=== PATIENT | female | born 1960 | race Caucasian/White ===

== ENCOUNTER 2023-09-14 11:48 | Inpatient (IN) | payer OTHER ==
[~2023-09-14] VITALS: Ht 167.6 cm; Wt 68.9 kg
[2023-09-14] VITALS (32 sets, daily range): BP systolic 150–160; BP diastolic 81–98; PULSE 53–106; RESP 18–19; TEMP 96.5–97.8
[2023-09-14 12:06] LABS: BASOPHILS % 0.6 % (0.0-2.0); DIFFERENTIAL COMMENT 0; EOSINOPHILS % 1.4 % (0.0-5.0); HEMATOCRIT. 36.2 % (36.0-48.0); HEMOGLOBIN. 10.6 g/dL (12.0-16.0); LYMPHOCYTES % 43.5 % (20.0-50.0); MEAN CORPUSCULAR HEMOGLOBIN 28.1 pg (28.0-32.0); MEAN CORPUSCULAR HGB CONC 29.2 g/dL (31.0-37.0); MEAN CORPUSCULAR VOLUME 96.3 fL (81.0-99.0); MEAN PLATELET VOLUME 9.1 fl (7.4-10.4); MONOCYTES % 8.1 % (2.0-8.0); NEUTROPHILS % 46.4 % (40.0-76.0); PLATELET 258 x1000/uL (130-400); RED BLOOD CELL COUNT 3.76 mill/uL (4.2-5.4); RED CELL DISTRIBUTION WIDTH 19.7 % (11.6-14.6)
[2023-09-14 12:33] LABS: ALANINE AMINOTRANSFERASE 52 IU/L (10-49); ASPARTATE AMINOTRANSFERASE 110 IU/L (<34); BILIRUBIN TOTAL 0.4 mg/dL (0.1-1.0); CALCIUM 8.7 mg/dL (8.7-10.4); CARBON DIOXIDE 25 mEq/L (21-32); CHLORIDE 96 mEq/L (98-107); CREATININE 2.4 mg/dL (0.6-1.0); GLUCOSE 173 mg/dL (70-105); PROTEIN TOTAL 6.6 g/dL (6.0-8.3); SODIUM 132 mEq/L (136-145); TROPONIN I HIGH SENSITIVITY 30 ng/L (3.0-34); UREA NITROGEN BLOOD 44 mg/dL (9-23)
[2023-09-14 12:44] LABS: CLARITY URINE CLEAR (CLEAR); COLOR URINE YELLOW (YELLOW); GLUCOSE URINE NEGATIVE (NEGATIVE); KETONES URINE TRACE (NEGATIVE); LEUKOCYTE ESTERASE URINE NEGATIVE (NEGATIVE); NITRITE URINE NEGATIVE (NEGATIVE); OCCULT BLOOD URINE TRACE (NEGATIVE); PH URINE 7.5 (4.5-8.0); PROTEIN URINE 4+ (NEGATIVE); SPECIFIC GRAVITY URINE 1.025 (1.005-1.030); UROBILINOGEN URINE 0.2 E.U./dL (0.2-1.0)
[2023-09-14 12:48] LABS: POTASSIUM 6.2 mEq/L (3.5-5.1)
[2023-09-14] MEDS ORDERED: FUROSEMIDE 100MG/10ML VIAL IV STA (13:21)
[2023-09-14 13:23] LABS: INR 1.3
[2023-09-14] MEDS ORDERED: INSULIN REGULAR (HUMULIN R) 300UNITS/3ML VIAL IV ONE (13:30)
[2023-09-14] MEDS ORDERED: CALCIUM CHLORIDE 1GM/10ML SYR IV ONE (13:30)
[2023-09-14] MEDS ORDERED: DEXTROSE 50% WATER 50ML SYRINGE IV ONE (13:30)
[2023-09-14] MEDS ORDERED: ALBUTEROL (0.083%) 2.5MG/3ML NEB HHN ONE (13:30)
[2023-09-14 13:42] LABS: SQUAMOUS EPITHELIAL CELL URINE FEW /lpf (RARE/1+)
[2023-09-14 13:43] LABS: BACTERIA URINE TRACE
[2023-09-14 13:44] LABS: WBC URINE 0-2 /hpf (0-2)
[2023-09-14] MEDS ORDERED: PROPOFOL 10MG/ML 100ML 100 ML IV SCH (13:45)
[2023-09-14] MEDS ORDERED: FUROSEMIDE 40MG/4ML VIAL IV NR (14:00)
[2023-09-14 15:49] LABS: LACTIC ACID 6.7 mmol/L (0.4-2.0)
[2023-09-14] MEDS: DEXT 5%/0.45% NACL 1000ML 1,000 ML IV SCH (17:00)
[2023-09-14] MEDS ORDERED: ENOXAPARIN 30MG/0.3ML SYR SUBCUT SCH (17:00)
[2023-09-14] MEDS ORDERED: SODIUM POLYSTYRENE SULFONATE 15 G/60 ML BOT PO NR (18:45)
[2023-09-14] MEDS: HYDRALAZINE HCL 10MG TABLET PO PRN (20:44)
[2023-09-14] MEDS ORDERED: PROPOFOL 10MG/ML 100ML 100 ML IV PRN (21:00)
[2023-09-14] MEDS: PROPOFOL 10MG/ML 100ML 100 ML IV PRN (21:17)
[2023-09-14] MEDS ORDERED: ACETAMINOPHEN 650MG/20.3ML UDC GT PRN (21:45)
[2023-09-14] MEDS ORDERED: IPRATROPIUM/ALBUTEROL 0.5-3(2.5)MG/3ML NEB NEB PRN (21:45)
[2023-09-14] MEDS ORDERED: ONDANSETRON HCL 4MG/2ML INJ IV PRN (21:45)
[2023-09-14] MEDS ORDERED: ENOXAPARIN 40MG/0.4ML SYR SUBCUT SCH (21:45)
[2023-09-14] MEDS ORDERED: DEXTROSE 50% WATER 50ML SYRINGE IV PRN (21:45)
[2023-09-14 22:25] LABS: TROPONIN I HIGH SENSITIVITY 1051 ng/L (3.0-34)
[2023-09-14 22:35] LABS: BG BASE EXCESS 4.9 mmol/L (-2.0-2.0); BG CARBOXYHEMOGLOBIN 0.1 % (0.5-1.5); BG DEOXYHEMOGLOBIN 0.5 % (0.0-5.0); BG FRACTION INSPIRED OXYGEN 80; BG METHEMOGLOBIN 0.2 % (0.0-1.5); BG OXYGEN SATURATION 99.5 % (92.0-98.5); BG OXYHEMOGLOBIN 99.2 % (94.0-97.0); BG PCO2 27.9 mmHg (35.0-45.0); BG PH 7.588 (7.350-7.450); BG PO2 231.1 mmHg (75.0-100.0); BG SAMPLE SITE LEFT BRACHIAL; BG TOTAL HEMOGLOBIN 11.9 g/dL (12.0-18.0); BG VENT MODE VENT - AC
[2023-09-15] VITALS (88 sets, daily range): BP systolic 133–183; BP diastolic 70–113; PULSE 56–78; RESP 12–28; TEMP 97.6–98.6; O2SAT 98
[2023-09-15] MEDS: PROPOFOL 10MG/ML 100ML 100 ML IV PRN ×2 (03:09→07:44)
[2023-09-15 05:32] LABS: HEMATOCRIT. 35.8 % (36.0-48.0); HEMOGLOBIN. 10.9 g/dL (12.0-16.0); MEAN CORPUSCULAR HEMOGLOBIN 27.1 pg (28.0-32.0); MEAN CORPUSCULAR HGB CONC 30.5 g/dL (31.0-37.0); MEAN CORPUSCULAR VOLUME 88.9 fL (81.0-99.0); MEAN PLATELET VOLUME 8.6 fl (7.4-10.4); PLATELET 352 x1000/uL (130-400); RED BLOOD CELL COUNT 4.03 mill/uL (4.2-5.4); RED CELL DISTRIBUTION WIDTH 17.9 % (11.6-14.6); WHITE BLOOD COUNT 12.1 x1000/uL (4.5-11.0)
[2023-09-15 06:05] LABS: CALCIUM 8.8 mg/dL (8.7-10.4); CARBON DIOXIDE 29 mEq/L (21-32); CHLORIDE 96 mEq/L (98-107); CREATININE 2.4 mg/dL (0.6-1.0); GLUCOSE 284 mg/dL (70-105); SODIUM 136 mEq/L (136-145); TRIGLYCERIDE 122 mg/dL (0-150); UREA NITROGEN BLOOD 51 mg/dL (9-23)
[2023-09-15 06:06] LABS: DIFFERENTIAL COMMENT 1
[2023-09-15 06:17] LABS: POTASSIUM 3.3 mEq/L (3.5-5.1)
[2023-09-15] MEDS ORDERED: POTASSIUM CHLORIDE 20MEQ/PACKET PO NR (08:15)
[2023-09-15] MEDS: BLOOD SUGAR DIAGNOSTIC STRIP TEST SCH ×4 (08:25→21:00)
[2023-09-15] MEDS: INSULIN LISPRO 100 UNITS/ML SUBCUT SCH ×4 (08:35→22:05)
[2023-09-15 08:46] LABS: BG BASE EXCESS 2.4 mmol/L (-2.0-2.0); BG CARBOXYHEMOGLOBIN 0.3 % (0.5-1.5); BG DEOXYHEMOGLOBIN 1.1 % (0.0-5.0); BG FRACTION INSPIRED OXYGEN 40; BG HCO3 ACT 24.2 mmol/L (22.0-26.0); BG METHEMOGLOBIN 0.3 % (0.0-1.5); BG OXYGEN SATURATION 98.9 % (92.0-98.5); BG OXYHEMOGLOBIN 98.3 % (94.0-97.0); BG PCO2 28.9 mmHg (35.0-45.0); BG PH 7.541 (7.350-7.450); BG PO2 148.3 mmHg (75.0-100.0); BG SAMPLE SITE RIGHT RADIAL; BG TOTAL HEMOGLOBIN 11.8 g/dL (12.0-18.0); BG VENT MODE VENT - AC
[2023-09-15 09:38] LABS: CREATINE KINASE 89 IU/L (34-145)
[2023-09-15] MEDS: PANTOPRAZOLE SODIUM 40 MG/VIAL IV SCH (10:02)
[2023-09-15] MEDS: HYDRALAZINE HCL 10MG TABLET PO PRN (10:02)
[2023-09-15] MEDS ORDERED: FUROSEMIDE 40MG/4ML VIAL IVP NR ×2 (11:00→19:30)
[2023-09-15 11:51] LABS: PLATELET ESTIMATE NORMAL
[2023-09-15 11:54] LABS: ANISOCYTOSIS 1+
[2023-09-15] MEDS: DEXT 5%/0.45% NACL 1000ML 1,000 ML IV SCH (12:30)
[2023-09-15] MEDS: ENOXAPARIN 60MG/0.6ML SYR SUBCUT SCH (12:32)
[2023-09-15 14:41] LABS: *AMPHETAMINES SCREEN URINE NEGATIVE (NEGATIVE); *BARBITURATES SCREEN URINE NEGATIVE (NEGATIVE); *BENZODIAZEPINES SCREEN URINE NEGATIVE (NEGATIVE); *COCAINE SCREEN URINE NEGATIVE (NEGATIVE); CANNABINOID URINE SCREEN NEGATIVE (NEGATIVE); ECSTASY MDMA SCREEN URINE NEGATIVE (NEGATIVE); METHADONE URINE SCREEN Neg (NEGATIVE); OPIATES URINE SCREEN NEGATIVE (NEGATIVE); PHENCYCLIDINE URINE SCREEN NEGATIVE (NEGATIVE)
[2023-09-15 14:44] LABS: CREATININE URINE RANDOM 53.4 mg/dL
[2023-09-15] MEDS: IPRATROPIUM/ALBUTEROL 0.5-3(2.5)MG/3ML NEB HHN SCH ×2 (16:14→21:04)
[2023-09-15] MEDS: ATORVASTATIN CALCIUM 40MG TABLET PO SCH (22:03)
[2023-09-16] VITALS (33 sets, daily range): BP systolic 126–150; BP diastolic 49–117; PULSE 69–91; RESP 10–32; TEMP 98.3–98.6
[2023-09-16] MEDS: IPRATROPIUM/ALBUTEROL 0.5-3(2.5)MG/3ML NEB HHN SCH ×3 (02:35→21:00)
[2023-09-16 06:07] LABS: CALCIUM 8.4 mg/dL (8.7-10.4); CREATININE 2.5 mg/dL (0.6-1.0); POTASSIUM 3.4 mEq/L (3.5-5.1)
[2023-09-16] MEDS: BLOOD SUGAR DIAGNOSTIC STRIP TEST SCH ×3 (07:58→17:45)
[2023-09-16] MEDS: INSULIN LISPRO 100 UNITS/ML SUBCUT SCH ×3 (07:59→17:52)
[2023-09-16 08:42] LABS: BG BASE EXCESS 3.4 mmol/L (-2.0-2.0); BG CARBOXYHEMOGLOBIN 0.3 % (0.5-1.5); BG DEOXYHEMOGLOBIN 3.1 % (0.0-5.0); BG FRACTION INSPIRED OXYGEN 30; BG HCO3 ACT 26.6 mmol/L (22.0-26.0); BG METHEMOGLOBIN 0.3 % (0.0-1.5); BG OXYGEN SATURATION 96.9 % (92.0-98.5); BG OXYHEMOGLOBIN 96.3 % (94.0-97.0); BG PCO2 35.6 mmHg (35.0-45.0); BG PH 7.491 (7.350-7.450); BG PO2 86.8 mmHg (75.0-100.0); BG SAMPLE SITE LEFT BRACHIAL; BG TOTAL HEMOGLOBIN 11.9 g/dL (12.0-18.0); BG VENT MODE VENT - AC
[2023-09-16] MEDS: DEXT 5%/0.45% NACL 1000ML 1,000 ML IV SCH ×2 (09:00→13:27)
[2023-09-16] MEDS: CARVEDILOL 6.25 MG TABLET PO SCH (09:13)
[2023-09-16] MEDS: PANTOPRAZOLE SODIUM 40 MG/VIAL IV SCH (09:13)
[2023-09-16] MEDS: ASPIRIN 81MG TABLET PO SCH (09:13)
[2023-09-16] MEDS: POTASSIUM CHLORIDE 20MEQ/PACKET PO SCH ×2 (09:14→17:51)
[2023-09-16] MEDS: FUROSEMIDE 100MG/10ML VIAL IVP SCH ×2 (09:14→17:51)
[2023-09-16] MEDS: ENOXAPARIN 60MG/0.6ML SYR SUBCUT SCH (12:53)
[2023-09-16] MEDS: ATORVASTATIN CALCIUM 40MG TABLET PO SCH (21:14)
[2023-09-17] VITALS (34 sets, daily range): BP systolic 109–163; BP diastolic 66–98; PULSE 63–95; RESP 10–24; TEMP 96–98.3
[2023-09-17] MEDS: BLOOD SUGAR DIAGNOSTIC STRIP TEST SCH ×4 (00:02→17:31)
[2023-09-17] MEDS: INSULIN LISPRO 100 UNITS/ML SUBCUT SCH ×4 (00:04→17:40)
[2023-09-17] MEDS: IPRATROPIUM/ALBUTEROL 0.5-3(2.5)MG/3ML NEB HHN SCH ×4 (00:37→19:58)
[2023-09-17] MEDS: DEXT 5%/0.45% NACL 1000ML 1,000 ML IV SCH (03:27)
[2023-09-17] MEDS: HYDRALAZINE HCL 10MG TABLET PO PRN (06:02)
[2023-09-17 06:03] LABS: BASOPHILS % 0.3 % (0.0-2.0); EOSINOPHILS % 0.4 % (0.0-5.0); HEMATOCRIT. 36.2 % (36.0-48.0); HEMOGLOBIN. 11.3 g/dL (12.0-16.0); LYMPHOCYTES % 7.7 % (20.0-50.0); MEAN CORPUSCULAR HEMOGLOBIN 27.6 pg (28.0-32.0); MEAN CORPUSCULAR HGB CONC 31.3 g/dL (31.0-37.0); MEAN CORPUSCULAR VOLUME 88.1 fL (81.0-99.0); MEAN PLATELET VOLUME 9.1 fl (7.4-10.4); MONOCYTES % 7.3 % (2.0-8.0); NEUTROPHILS % 84.3 % (40.0-76.0); PLATELET 353 x1000/uL (130-400); RED BLOOD CELL COUNT 4.11 mill/uL (4.2-5.4); RED CELL DISTRIBUTION WIDTH 18.4 % (11.6-14.6); WHITE BLOOD COUNT 11.7 x1000/uL (4.5-11.0)
[2023-09-17 06:23] LABS: CALCIUM 8.4 mg/dL (8.7-10.4); CREATININE 2.6 mg/dL (0.6-1.0)
[2023-09-17] MEDS: FUROSEMIDE 100MG/10ML VIAL IVP SCH ×2 (08:42→17:39)
[2023-09-17] MEDS: ASPIRIN 81MG TABLET PO SCH (08:42)
[2023-09-17] MEDS: POTASSIUM CHLORIDE 20MEQ/PACKET PO SCH (08:42)
[2023-09-17] MEDS: PANTOPRAZOLE SODIUM 40 MG/VIAL IV SCH (08:44)
[2023-09-17] MEDS: CARVEDILOL 6.25 MG TABLET PO SCH (08:44)
[2023-09-17 10:24] LABS: BG BASE EXCESS -5.8 mmol/L (-2.0-2.0); BG CARBOXYHEMOGLOBIN 0.3 % (0.5-1.5); BG FRACTION INSPIRED OXYGEN 30; BG HCO3 ACT 17.2 mmol/L (22.0-26.0); BG METHEMOGLOBIN 0.3 % (0.0-1.5); BG OXYHEMOGLOBIN 91.4 % (94.0-97.0); BG PCO2 24.9 mmHg (35.0-45.0); BG PH 7.457 (7.350-7.450); BG PO2 60.5 mmHg (75.0-100.0); BG SAMPLE SITE RIGHT RADIAL; BG TOTAL HEMOGLOBIN 8.1 g/dL (12.0-18.0); BG VENT MODE VENT - AC/VC
[2023-09-17] MEDS: ENOXAPARIN 60MG/0.6ML SYR SUBCUT SCH (12:48)
[2023-09-17] MEDS: ATORVASTATIN CALCIUM 40MG TABLET PO SCH (22:26)
[2023-09-18] VITALS (49 sets, daily range): BP systolic 119–149; BP diastolic 61–77; PULSE 61–69; RESP 12–27; TEMP 97.2–98
[2023-09-18] MEDS: BLOOD SUGAR DIAGNOSTIC STRIP TEST SCH ×4 (00:22→17:57)
[2023-09-18] MEDS: INSULIN LISPRO 100 UNITS/ML SUBCUT SCH ×4 (00:28→17:56)
[2023-09-18] MEDS: DEXT 5%/0.45% NACL 1000ML 1,000 ML IV SCH (01:46)
[2023-09-18] MEDS: IPRATROPIUM/ALBUTEROL 0.5-3(2.5)MG/3ML NEB HHN SCH ×4 (02:05→20:33)
[2023-09-18 07:58] LABS: HEMOGLOBIN. 10.7 g/dL (12.0-16.0); MEAN CORPUSCULAR HEMOGLOBIN 28.2 pg (28.0-32.0); MEAN CORPUSCULAR HGB CONC 32.5 g/dL (31.0-37.0); MEAN CORPUSCULAR VOLUME 86.6 fL (81.0-99.0); PLATELET 296 x1000/uL (130-400); RED BLOOD CELL COUNT 3.81 mill/uL (4.2-5.4); RED CELL DISTRIBUTION WIDTH 18.3 % (11.6-14.6); WHITE BLOOD COUNT 9.9 x1000/uL (4.5-11.0)
[2023-09-18 08:17] LABS: DIFFERENTIAL COMMENT 1
[2023-09-18 08:21] LABS: CALCIUM 8.1 mg/dL (8.7-10.4); CARBON DIOXIDE 25 mEq/L (21-32); CHLORIDE 101 mEq/L (98-107); CREATININE 2.5 mg/dL (0.6-1.0); GLUCOSE 193 mg/dL (70-105); PHOSPHORUS 4.2 mg/dL (2.5-4.9); POTASSIUM 3.5 mEq/L (3.5-5.1); SODIUM 137 mEq/L (136-145); UREA NITROGEN BLOOD 56 mg/dL (9-23)
[2023-09-18] MEDS: PANTOPRAZOLE SODIUM 40 MG/VIAL IV SCH (09:25)
[2023-09-18] MEDS: POTASSIUM CHLORIDE 20MEQ/PACKET PO SCH (09:25)
[2023-09-18] MEDS: CARVEDILOL 6.25 MG TABLET PO SCH (09:25)
[2023-09-18] MEDS: ASPIRIN 81MG TABLET PO SCH (09:25)
[2023-09-18] MEDS: FUROSEMIDE 100MG/10ML VIAL IVP SCH ×2 (09:25→17:56)
[2023-09-18] MEDS ORDERED: POTASSIUM CHLORIDE 20MEQ/PACKET PO NR (11:45)
[2023-09-18 12:14] LABS: BG BASE EXCESS 2.5 mmol/L (-2.0-2.0); BG CARBOXYHEMOGLOBIN 0.3 % (0.5-1.5); BG DEOXYHEMOGLOBIN 1.9 % (0.0-5.0); BG HCO3 ACT 25.1 mmol/L (22.0-26.0); BG METHEMOGLOBIN 0.1 % (0.0-1.5); BG OXYGEN SATURATION 98.1 % (92.0-98.5); BG OXYHEMOGLOBIN 97.7 % (94.0-97.0); BG PCO2 32.2 mmHg (35.0-45.0); BG PH 7.509 (7.350-7.450); BG PO2 101.9 mmHg (75.0-100.0); BG SAMPLE SITE RIGHT BRACHIAL; BG TOTAL HEMOGLOBIN 12.2 g/dL (12.0-18.0); BG VENT MODE VENT - AC
[2023-09-18 12:46] LABS: ANISOCYTOSIS 1+; PLATELET ESTIMATE NORMAL
[2023-09-18] MEDS: ENOXAPARIN 60MG/0.6ML SYR SUBCUT SCH (13:21)
[2023-09-18] MEDS: ATORVASTATIN CALCIUM 40MG TABLET PO SCH (21:39)
[2023-09-19] VITALS (58 sets, daily range): BP systolic 116–162; BP diastolic 59–82; PULSE 63–89; RESP 5–26; TEMP 97–97.7
[2023-09-19] MEDS: INSULIN LISPRO 100 UNITS/ML SUBCUT SCH ×4 (00:24→17:39)
[2023-09-19] MEDS: IPRATROPIUM/ALBUTEROL 0.5-3(2.5)MG/3ML NEB HHN SCH ×4 (02:34→20:45)
[2023-09-19] MEDS: BLOOD SUGAR DIAGNOSTIC STRIP TEST SCH ×4 (06:00→17:39)
[2023-09-19 07:03] LABS: CALCIUM 8.3 mg/dL (8.7-10.4); CREATININE 2.4 mg/dL (0.6-1.0); POTASSIUM 3.9 mEq/L (3.5-5.1)
[2023-09-19 07:51] LABS: HEPATITIS B SURFACE ANTIGEN NEGATIVE (Negative); HEPATITIS C AB NON REACTIVE (Neg) (Negative)
[2023-09-19] MEDS: FUROSEMIDE 100MG/10ML VIAL IVP SCH ×2 (08:59→17:37)
[2023-09-19] MEDS: PANTOPRAZOLE SODIUM 40 MG/VIAL IV SCH (09:00)
[2023-09-19] MEDS: CARVEDILOL 6.25 MG TABLET PO SCH (09:00)
[2023-09-19] MEDS: ASPIRIN 81MG TABLET PO SCH (09:00)
[2023-09-19] MEDS: ENOXAPARIN 60MG/0.6ML SYR SUBCUT SCH (12:00)
[2023-09-19 12:08] LABS: BG BASE EXCESS 4.2 mmol/L (-2.0-2.0); BG CARBOXYHEMOGLOBIN 0.5 % (0.5-1.5); BG DEOXYHEMOGLOBIN 2.6 % (0.0-5.0); BG FRACTION INSPIRED OXYGEN 35; BG HCO3 ACT 27.8 mmol/L (22.0-26.0); BG METHEMOGLOBIN 0.2 % (0.0-1.5); BG OXYGEN SATURATION 97.4 % (92.0-98.5); BG OXYHEMOGLOBIN 96.7 % (94.0-97.0); BG PCO2 38.2 mmHg (35.0-45.0); BG PO2 91.6 mmHg (75.0-100.0); BG SAMPLE SITE LEFT BRACHIAL; BG TOTAL HEMOGLOBIN 12.1 g/dL (12.0-18.0); BG TOTAL RESPIRATORY RATE 15 b/min; BG VENT MODE VENT - AC
[2023-09-19] MEDS: ATORVASTATIN CALCIUM 40MG TABLET PO SCH (21:39)
[2023-09-20] VITALS (39 sets, daily range): BP systolic 116–156; BP diastolic 58–79; PULSE 67–84; RESP 0–31; TEMP 97.5–98.3
[2023-09-20] MEDS: INSULIN LISPRO 100 UNITS/ML SUBCUT SCH ×5 (00:20→23:58)
[2023-09-20] MEDS: IPRATROPIUM/ALBUTEROL 0.5-3(2.5)MG/3ML NEB HHN SCH ×2 (02:35→08:52)
[2023-09-20 05:26] LABS: BASOPHILS % 0.4 % (0.0-2.0); EOSINOPHILS % 1.5 % (0.0-5.0); HEMATOCRIT. 36.8 % (36.0-48.0); HEMOGLOBIN. 11.9 g/dL (12.0-16.0); LYMPHOCYTES % 9.5 % (20.0-50.0); MEAN CORPUSCULAR HEMOGLOBIN 28.2 pg (28.0-32.0); MEAN CORPUSCULAR HGB CONC 32.4 g/dL (31.0-37.0); MEAN CORPUSCULAR VOLUME 87.1 fL (81.0-99.0); MEAN PLATELET VOLUME 9.1 fl (7.4-10.4); MONOCYTES % 15.9 % (2.0-8.0); NEUTROPHILS % 72.7 % (40.0-76.0); PLATELET 285 x1000/uL (130-400); RED BLOOD CELL COUNT 4.22 mill/uL (4.2-5.4); RED CELL DISTRIBUTION WIDTH 18.5 % (11.6-14.6); WHITE BLOOD COUNT 8.2 x1000/uL (4.5-11.0)
[2023-09-20 05:38] LABS: CALCIUM 8.3 mg/dL (8.7-10.4); CREATININE 2.4 mg/dL (0.6-1.0); POTASSIUM 4.2 mEq/L (3.5-5.1)
[2023-09-20 05:41] LABS: DIFFERENTIAL COMMENT 1
[2023-09-20] MEDS: BLOOD SUGAR DIAGNOSTIC STRIP TEST SCH ×5 (06:00→23:28)
[2023-09-20] MEDS: ASPIRIN 81MG TABLET PO SCH (09:40)
[2023-09-20] MEDS: FUROSEMIDE 100MG/10ML VIAL IVP SCH (09:41)
[2023-09-20] MEDS: PANTOPRAZOLE SODIUM 40 MG/VIAL IV SCH (09:41)
[2023-09-20] MEDS: CARVEDILOL 6.25 MG TABLET PO SCH (09:41)
[2023-09-20 10:06] LABS: COMPLEMENT C3 100 mg/dL (82-167); COMPLEMENT C4 27 mg/dL (12-38)
[2023-09-20] MEDS: ENOXAPARIN 60MG/0.6ML SYR SUBCUT SCH (12:40)
[2023-09-20] MEDS: FUROSEMIDE 40MG/4 ML UDC PO SCH (20:18)
[2023-09-20] MEDS: ATORVASTATIN CALCIUM 40MG TABLET PO SCH (20:19)
[2023-09-21] VITALS (34 sets, daily range): BP systolic 115–149; BP diastolic 57–76; PULSE 62–82; RESP 12–24; TEMP 97.1–98.5
[2023-09-21] MEDS: BLOOD SUGAR DIAGNOSTIC STRIP TEST SCH ×3 (05:55→18:00)
[2023-09-21] MEDS: INSULIN LISPRO 100 UNITS/ML SUBCUT SCH ×3 (06:02→20:10)
[2023-09-21 06:11] LABS: A/G RATIO 0.6 (0.7-1.7); ALPHA-1-GLOBULIN 0.4 g/dL (0.0-0.4); ALPHA-2-GLOBULIN 0.8 g/dL (0.4-1.0); GAMMA GLOBULINS 1.1 g/dL (0.4-1.8); GLOBULIN TOTAL 3.4 g/dL (2.2-3.9); M-SPIKE Not Observed g/dL (Not Observed); TOTAL PROTEIN SERUM 5.4 g/dL (6.0-8.5)
[2023-09-21] MEDS: FUROSEMIDE 40MG/4 ML UDC PO SCH ×2 (09:48→21:46)
[2023-09-21] MEDS: PANTOPRAZOLE SODIUM 40 MG/VIAL IV SCH (09:48)
[2023-09-21] MEDS: ASPIRIN 81MG TABLET PO SCH (09:49)
[2023-09-21] MEDS: CARVEDILOL 6.25 MG TABLET PO SCH (09:49)
[2023-09-21] MEDS: ENOXAPARIN 60MG/0.6ML SYR SUBCUT SCH (13:49)
[2023-09-21] MEDS: ATORVASTATIN CALCIUM 40MG TABLET PO SCH (21:46)
[2023-09-22] VITALS (31 sets, daily range): BP systolic 117–149; BP diastolic 56–72; PULSE 68–88; RESP 9–19; TEMP 97.9–98.7
[2023-09-22] MEDS: INSULIN LISPRO 100 UNITS/ML SUBCUT SCH ×4 (00:16→19:05)
[2023-09-22] MEDS: BLOOD SUGAR DIAGNOSTIC STRIP TEST SCH ×4 (05:33→18:00)
[2023-09-22 08:58] LABS: HEMATOCRIT 34.1 % (36.0-48.0); HEMOGLOBIN 10.6 g/dL (12.0-16.0); MEAN CORPUSCULAR HEMOGLOBIN 27.3 pg (28.0-32.0); MEAN CORPUSCULAR HGB CONC 31.1 g/dL (31.0-37.0); MEAN CORPUSCULAR VOLUME 87.8 fL (81.0-99.0); PLATELET 260 x1000/uL (130-400); RED BLOOD CELL COUNT 3.89 mill/uL (4.2-5.4); RED CELL DISTRIBUTION WIDTH 18.4 % (11.6-14.6); WHITE BLOOD COUNT 11.1 x1000/uL (4.5-11.0)
[2023-09-22] MEDS: PANTOPRAZOLE SODIUM 40 MG/VIAL IV SCH (09:01)
[2023-09-22] MEDS: FUROSEMIDE 40MG/4 ML UDC PO SCH ×2 (09:01→21:10)
[2023-09-22] MEDS: CARVEDILOL 6.25 MG TABLET PO SCH (09:01)
[2023-09-22] MEDS: ASPIRIN 81MG TABLET PO SCH (09:02)
[2023-09-22 09:06] LABS: CREATININE 2.4 mg/dL (0.6-1.0); POTASSIUM 3.7 mEq/L (3.5-5.1)
[2023-09-22] MEDS: ENOXAPARIN 60MG/0.6ML SYR SUBCUT SCH (12:53)
[2023-09-22] MEDS: ATORVASTATIN CALCIUM 40MG TABLET PO SCH (21:09)
[2023-09-23] VITALS (30 sets, daily range): BP systolic 117–147; BP diastolic 54–73; PULSE 75–98; RESP 13–32; TEMP 97.9–99.3
[2023-09-23] MEDS: BLOOD SUGAR DIAGNOSTIC STRIP TEST SCH ×4 (00:19→17:27)
[2023-09-23] MEDS: INSULIN LISPRO 100 UNITS/ML SUBCUT SCH ×4 (00:19→17:52)
[2023-09-23 07:03] LABS: HEMATOCRIT. 33.8 % (36.0-48.0); HEMOGLOBIN. 10.6 g/dL (12.0-16.0); MEAN CORPUSCULAR HEMOGLOBIN 27.4 pg (28.0-32.0); MEAN CORPUSCULAR HGB CONC 31.3 g/dL (31.0-37.0); MEAN CORPUSCULAR VOLUME 87.3 fL (81.0-99.0); MEAN PLATELET VOLUME 9.5 fl (7.4-10.4); PLATELET 286 x1000/uL (130-400); RED BLOOD CELL COUNT 3.87 mill/uL (4.2-5.4); RED CELL DISTRIBUTION WIDTH 18.3 % (11.6-14.6); WHITE BLOOD COUNT 11.9 x1000/uL (4.5-11.0)
[2023-09-23 07:08] LABS: DIFFERENTIAL COMMENT 1
[2023-09-23 08:05] LABS: CALCIUM 8.4 mg/dL (8.7-10.4); CREATININE 2.7 mg/dL (0.6-1.0); POTASSIUM 3.5 mEq/L (3.5-5.1)
[2023-09-23] MEDS: ASPIRIN 81MG TABLET PO SCH (08:45)
[2023-09-23] MEDS ORDERED: POTASSIUM CHLORIDE INJ 40 MEQ in DEXT 5% WATER 250 ML IV ONE (08:45)
[2023-09-23] MEDS: FUROSEMIDE 40MG/4 ML UDC PO SCH ×2 (08:45→21:48)
[2023-09-23] MEDS: KCL 20MEQ/100ML X 2 FOR TOTAL KCL 40MEQ/200ML IV SCH ×2 (08:45→11:08)
[2023-09-23] MEDS: CARVEDILOL 6.25 MG TABLET PO SCH (08:45)
[2023-09-23] MEDS: PANTOPRAZOLE SODIUM 40 MG/VIAL IV SCH (08:45)
[2023-09-23] MEDS: IPRATROPIUM/ALBUTEROL 0.5-3(2.5)MG/3ML NEB HHN SCH ×3 (11:31→21:07)
[2023-09-23] MEDS: ENOXAPARIN 60MG/0.6ML SYR SUBCUT SCH (12:14)
[2023-09-23 13:42] LABS: BG BASE EXCESS 0.8 mmol/L (-2.0-2.0); BG CARBOXYHEMOGLOBIN 0.1 % (0.5-1.5); BG DEOXYHEMOGLOBIN 1.9 % (0.0-5.0); BG FRACTION INSPIRED OXYGEN 35; BG HCO3 ACT 23.9 mmol/L (22.0-26.0); BG METHEMOGLOBIN 0.3 % (0.0-1.5); BG OXYGEN SATURATION 98.1 % (92.0-98.5); BG OXYHEMOGLOBIN 97.7 % (94.0-97.0); BG PCO2 33.2 mmHg (35.0-45.0); BG PH 7.476 (7.350-7.450); BG SAMPLE SITE RIGHT RADIAL; BG TOTAL HEMOGLOBIN 11.5 g/dL (12.0-18.0); BG VENT MODE VENT - CPAP/PS
[2023-09-23 16:26] LABS: ANISOCYTOSIS 2+; HYPOCHROMASIA 1+; PLATELET ESTIMATE NORMAL
[2023-09-23] MEDS: ATORVASTATIN CALCIUM 40MG TABLET PO SCH (21:49)
[2023-09-24] VITALS (26 sets, daily range): BP systolic 108–150; BP diastolic 49–78; PULSE 79–111; RESP 10–26; TEMP 97.9–102.3
[2023-09-24] MEDS: INSULIN LISPRO 100 UNITS/ML SUBCUT SCH ×5 (00:55→23:48)
[2023-09-24] MEDS: BLOOD SUGAR DIAGNOSTIC STRIP TEST SCH ×5 (00:56→23:31)
[2023-09-24] MEDS: IPRATROPIUM/ALBUTEROL 0.5-3(2.5)MG/3ML NEB HHN SCH ×4 (01:43→21:33)
[2023-09-24 05:57] LABS: HEMATOCRIT. 33.1 % (36.0-48.0); HEMOGLOBIN. 10.6 g/dL (12.0-16.0); MEAN CORPUSCULAR HEMOGLOBIN 27.5 pg (28.0-32.0); MEAN CORPUSCULAR HGB CONC 32.2 g/dL (31.0-37.0); MEAN CORPUSCULAR VOLUME 85.5 fL (81.0-99.0); MEAN PLATELET VOLUME 9.2 fl (7.4-10.4); PLATELET 285 x1000/uL (130-400); RED BLOOD CELL COUNT 3.87 mill/uL (4.2-5.4); RED CELL DISTRIBUTION WIDTH 18.2 % (11.6-14.6); WHITE BLOOD COUNT 16.9 x1000/uL (4.5-11.0)
[2023-09-24 06:02] LABS: CALCIUM 8.4 mg/dL (8.7-10.4); CREATININE 2.7 mg/dL (0.6-1.0); POTASSIUM 3.8 mEq/L (3.5-5.1)
[2023-09-24 06:21] LABS: DIFFERENTIAL COMMENT 1
[2023-09-24] MEDS: PANTOPRAZOLE SODIUM 40 MG/VIAL IV SCH (09:13)
[2023-09-24] MEDS: CARVEDILOL 6.25 MG TABLET PO SCH (09:14)
[2023-09-24] MEDS: FUROSEMIDE 40MG/4 ML UDC PO SCH (09:14)
[2023-09-24] MEDS: ASPIRIN 81MG TABLET PO SCH (09:15)
[2023-09-24] MEDS: ENOXAPARIN 60MG/0.6ML SYR SUBCUT SCH (13:06)
[2023-09-24] MEDS: HYDRALAZINE HCL 10MG TABLET PO PRN (18:07)
[2023-09-24] MEDS: INSULIN GLARGINE 100 UNITS/ML SUBCUT SCH (18:09)
[2023-09-24] MEDS: ACETAMINOPHEN 650MG/20.3ML UDC GT PRN (20:03)
[2023-09-24] MEDS: ATORVASTATIN CALCIUM 40MG TABLET PO SCH (20:03)
[2023-09-24] MEDS: FUROSEMIDE 40MG TABLET PO SCH (20:03)
[2023-09-25] VITALS (31 sets, daily range): BP systolic 115–140; BP diastolic 53–67; PULSE 78–85; RESP 0–28; TEMP 99.3–100.2
[2023-09-25] MEDS: IPRATROPIUM/ALBUTEROL 0.5-3(2.5)MG/3ML NEB HHN SCH ×4 (00:51→19:54)
[2023-09-25 03:04] LABS: ANISOCYTOSIS 1+; PLATELET ESTIMATE NORMAL
[2023-09-25 04:21] LABS: ANA IFA Positive (.)
[2023-09-25] MEDS: BLOOD SUGAR DIAGNOSTIC STRIP TEST SCH ×4 (06:00→23:32)
[2023-09-25] MEDS: INSULIN LISPRO 100 UNITS/ML SUBCUT SCH ×4 (06:50→23:32)
[2023-09-25 08:02] LABS: CALCIUM 8.7 mg/dL (8.7-10.4); CARBON DIOXIDE 25 mEq/L (21-32); CHLORIDE 110 mEq/L (98-107); CREATININE 2.9 mg/dL (0.6-1.0); GLUCOSE 251 mg/dL (70-105); PHOSPHORUS 3.6 mg/dL (2.5-4.9); POTASSIUM 3.7 mEq/L (3.5-5.1); PREALBUMIN 5.7 mg/dl (10.0-40.0); SODIUM 147 mEq/L (136-145)
[2023-09-25 09:17] LABS: UREA NITROGEN BLOOD 103 mg/dL (9-23)
[2023-09-25] MEDS: PANTOPRAZOLE SODIUM 40 MG/VIAL IV SCH (09:31)
[2023-09-25] MEDS: CARVEDILOL 6.25 MG TABLET PO SCH (09:31)
[2023-09-25] MEDS: FUROSEMIDE 40MG TABLET PO SCH ×2 (09:31→21:34)
[2023-09-25] MEDS: ASPIRIN 81MG TABLET PO SCH (09:31)
[2023-09-25] MEDS: INSULIN GLARGINE 100 UNITS/ML SUBCUT SCH (09:32)
[2023-09-25 10:22] LABS: BG BASE EXCESS 0.8 mmol/L (-2.0-2.0); BG CARBOXYHEMOGLOBIN 0.8 % (0.5-1.5); BG DEOXYHEMOGLOBIN 2.5 % (0.0-5.0); BG FRACTION INSPIRED OXYGEN 30; BG HCO3 ACT 24.3 mmol/L (22.0-26.0); BG METHEMOGLOBIN 0.5 % (0.0-1.5); BG OXYGEN SATURATION 97.5 % (92.0-98.5); BG OXYHEMOGLOBIN 96.2 % (94.0-97.0); BG PCO2 34.9 mmHg (35.0-45.0); BG PH 7.461 (7.350-7.450); BG PO2 94.4 mmHg (75.0-100.0); BG SAMPLE SITE RIGHT BRACHIAL; BG TOTAL HEMOGLOBIN 11.5 g/dL (12.0-18.0); BG VENT MODE VENT - CPAP
[2023-09-25] MEDS: ENOXAPARIN 60MG/0.6ML SYR SUBCUT SCH (11:49)
[2023-09-25] MEDS: ATORVASTATIN CALCIUM 40MG TABLET PO SCH (21:33)
[2023-09-26] VITALS (33 sets, daily range): BP systolic 118–142; BP diastolic 56–72; PULSE 65–89; RESP 0–24; TEMP 98.7–101
[2023-09-26] MEDS: IPRATROPIUM/ALBUTEROL 0.5-3(2.5)MG/3ML NEB HHN SCH ×4 (01:21→21:05)
[2023-09-26] MEDS: BLOOD SUGAR DIAGNOSTIC STRIP TEST SCH ×4 (06:00→23:20)
[2023-09-26 06:07] LABS: HEMATOCRIT. 32.3 % (36.0-48.0); MEAN CORPUSCULAR HGB CONC 30.9 g/dL (31.0-37.0); MEAN CORPUSCULAR VOLUME 87.3 fL (81.0-99.0); MEAN PLATELET VOLUME 9.7 fl (7.4-10.4); PLATELET 261 x1000/uL (130-400); RED BLOOD CELL COUNT 3.71 mill/uL (4.2-5.4); WHITE BLOOD COUNT 26.5 x1000/uL (4.5-11.0)
[2023-09-26] MEDS: INSULIN LISPRO 100 UNITS/ML SUBCUT SCH ×3 (06:21→17:51)
[2023-09-26 06:28] LABS: CALCIUM 8.3 mg/dL (8.7-10.4); CREATININE 2.8 mg/dL (0.6-1.0); POTASSIUM 3.8 mEq/L (3.5-5.1)
[2023-09-26 08:47] LABS: DIFFERENTIAL COMMENT 1
[2023-09-26] MEDS: FUROSEMIDE 40MG TABLET PO SCH ×2 (09:15→20:48)
[2023-09-26] MEDS: ASPIRIN 81MG TABLET PO SCH (09:15)
[2023-09-26] MEDS: PANTOPRAZOLE SODIUM 40 MG/VIAL IV SCH (09:15)
[2023-09-26] MEDS: CARVEDILOL 6.25 MG TABLET PO SCH (09:16)
[2023-09-26] MEDS: INSULIN GLARGINE 100 UNITS/ML SUBCUT SCH (09:17)
[2023-09-26 10:22] LABS: BG BASE EXCESS 1.6 mmol/L (-2.0-2.0); BG CARBOXYHEMOGLOBIN 0.3 % (0.5-1.5); BG DEOXYHEMOGLOBIN 3.8 % (0.0-5.0); BG FRACTION INSPIRED OXYGEN 30; BG HCO3 ACT 25.1 mmol/L (22.0-26.0); BG METHEMOGLOBIN 0.3 % (0.0-1.5); BG OXYGEN SATURATION 96.2 % (92.0-98.5); BG OXYHEMOGLOBIN 95.6 % (94.0-97.0); BG PCO2 35.3 mmHg (35.0-45.0); BG PO2 81.3 mmHg (75.0-100.0); BG SAMPLE SITE RIGHT BRACHIAL; BG TOTAL HEMOGLOBIN 10.8 g/dL (12.0-18.0); BG VENT MODE VENT - CPAP
[2023-09-26] MEDS: ENOXAPARIN 60MG/0.6ML SYR SUBCUT SCH (13:11)
[2023-09-26] MEDS: CEFEPIME 2,000 MG in DEXT 5% WATER 100 ML IV SCH (14:31)
[2023-09-26 15:08] LABS: CLARITY URINE TURBID (CLEAR); COLOR URINE YELLOW (YELLOW); GLUCOSE URINE TRACE (NEGATIVE); KETONES URINE NEGATIVE (NEGATIVE); LEUKOCYTE ESTERASE URINE 1+ (NEGATIVE); NITRITE URINE NEGATIVE (NEGATIVE); OCCULT BLOOD URINE NEGATIVE (NEGATIVE); PH URINE >=9.0 (4.5-8.0); PROTEIN URINE 3+ (NEGATIVE); SPECIFIC GRAVITY URINE 1.016 (1.005-1.030)
[2023-09-26 15:49] LABS: BACTERIA URINE 4+; RBC URINE NONE SEEN /hpf (0-2); SQUAMOUS EPITHELIAL CELL URINE NONE SEEN /lpf (RARE/1+); WBC URINE 0-2 /hpf (0-2); YEAST URINE NONE SEEN
[2023-09-26 15:50] LABS: TRIPLE PHOSPHATE CRYSTAL URINE 1+ /lpf
[2023-09-26] MEDS: ACETAMINOPHEN 650MG/20.3ML UDC GT PRN (16:09)
[2023-09-26] MEDS: ATORVASTATIN CALCIUM 40MG TABLET PO SCH (20:48)
[2023-09-26 22:55] LABS: PLATELET ESTIMATE NORMAL
[2023-09-27] VITALS (33 sets, daily range): BP systolic 117–137; BP diastolic 57–75; PULSE 67–84; RESP 13–25; TEMP 98–100
[2023-09-27] MEDS: IPRATROPIUM/ALBUTEROL 0.5-3(2.5)MG/3ML NEB HHN SCH ×3 (00:56→14:14)
[2023-09-27] MEDS: INSULIN LISPRO 100 UNITS/ML SUBCUT SCH ×10 (05:54→23:55)
[2023-09-27] MEDS: BLOOD SUGAR DIAGNOSTIC STRIP TEST SCH ×4 (06:00→23:48)
[2023-09-27 06:12] LABS: HEMATOCRIT. 31.5 % (36.0-48.0); HEMOGLOBIN. 9.7 g/dL (12.0-16.0); MEAN CORPUSCULAR HEMOGLOBIN 26.8 pg (28.0-32.0); MEAN CORPUSCULAR HGB CONC 30.9 g/dL (31.0-37.0); MEAN CORPUSCULAR VOLUME 86.6 fL (81.0-99.0); MEAN PLATELET VOLUME 9.8 fl (7.4-10.4); PLATELET 222 x1000/uL (130-400); RED BLOOD CELL COUNT 3.64 mill/uL (4.2-5.4); RED CELL DISTRIBUTION WIDTH 18.6 % (11.6-14.6); WHITE BLOOD COUNT 20.8 x1000/uL (4.5-11.0)
[2023-09-27 06:28] LABS: CALCIUM 8.3 mg/dL (8.7-10.4); CREATININE 2.9 mg/dL (0.6-1.0); DIFFERENTIAL COMMENT 1; POTASSIUM 3.7 mEq/L (3.5-5.1)
[2023-09-27 08:41] LABS: BG BASE EXCESS -0.8 mmol/L (-2.0-2.0); BG DEOXYHEMOGLOBIN 1.7 % (0.0-5.0); BG FRACTION INSPIRED OXYGEN 30; BG HCO3 ACT 22.7 mmol/L (22.0-26.0); BG METHEMOGLOBIN 0.3 % (0.0-1.5); BG OXYGEN SATURATION 98.3 % (92.0-98.5); BG PCO2 33.3 mmHg (35.0-45.0); BG PH 7.451 (7.350-7.450); BG PO2 117.2 mmHg (75.0-100.0); BG SAMPLE SITE RIGHT BRACHIAL; BG TOTAL HEMOGLOBIN 10.9 g/dL (12.0-18.0); BG VENT MODE VENT - AC/VC
[2023-09-27] MEDS: PANTOPRAZOLE SODIUM 40 MG/VIAL IV SCH (08:50)
[2023-09-27] MEDS: FUROSEMIDE 40MG TABLET PO SCH ×2 (08:50→21:39)
[2023-09-27] MEDS: CARVEDILOL 6.25 MG TABLET PO SCH (08:59)
[2023-09-27] MEDS: ASPIRIN 81MG TABLET PO SCH (09:00)
[2023-09-27] MEDS: INSULIN GLARGINE 100 UNITS/ML SUBCUT SCH (10:31)
[2023-09-27 11:43] LABS: PLATELET ESTIMATE NORMAL
[2023-09-27] MEDS: ENOXAPARIN 60MG/0.6ML SYR SUBCUT SCH (12:04)
[2023-09-27] MEDS: CEFEPIME 2,000 MG in DEXT 5% WATER 100 ML IV SCH (14:01)
[2023-09-27] MEDS: ATORVASTATIN CALCIUM 40MG TABLET PO SCH (21:39)
[2023-09-27] MEDS ORDERED: VANCOMYCIN 1G PREMIX 200 ML IV NR (23:00)
[2023-09-28] VITALS (37 sets, daily range): BP systolic 124–140; BP diastolic 65–74; PULSE 70–83; RESP 12–20; TEMP 97.9–98.9
[2023-09-28] MEDS: BLOOD SUGAR DIAGNOSTIC STRIP TEST SCH ×3 (05:50→17:19)
[2023-09-28] MEDS: INSULIN LISPRO 100 UNITS/ML SUBCUT SCH ×6 (05:50→17:24)
[2023-09-28 06:00] LABS: HEMATOCRIT 29.6 % (36.0-48.0); HEMOGLOBIN 9.1 g/dL (12.0-16.0); MEAN CORPUSCULAR HEMOGLOBIN 26.4 pg (28.0-32.0); MEAN CORPUSCULAR HGB CONC 30.6 g/dL (31.0-37.0); MEAN CORPUSCULAR VOLUME 86.1 fL (81.0-99.0); PLATELET 188 x1000/uL (130-400); RED BLOOD CELL COUNT 3.43 mill/uL (4.2-5.4); RED CELL DISTRIBUTION WIDTH 18.5 % (11.6-14.6)
[2023-09-28 06:10] LABS: CREATININE 3.2 mg/dL (0.6-1.0); POTASSIUM 3.8 mEq/L (3.5-5.1)
[2023-09-28] MEDS: CARVEDILOL 6.25 MG TABLET PO SCH (08:25)
[2023-09-28] MEDS: FUROSEMIDE 40MG TABLET PO SCH ×2 (08:25→21:25)
[2023-09-28] MEDS: PANTOPRAZOLE SODIUM 40 MG/VIAL IV SCH (08:26)
[2023-09-28] MEDS: ASPIRIN 81MG TABLET PO SCH (08:26)
[2023-09-28] MEDS: IPRATROPIUM/ALBUTEROL 0.5-3(2.5)MG/3ML NEB HHN SCH ×3 (09:07→20:13)
[2023-09-28] MEDS: INSULIN GLARGINE 100 UNITS/ML SUBCUT SCH (10:06)
[2023-09-28] MEDS: ENOXAPARIN 60MG/0.6ML SYR SUBCUT SCH (12:00)
[2023-09-28] MEDS: CEFEPIME 2,000 MG in DEXT 5% WATER 100 ML IV SCH (13:01)
[2023-09-28 18:32] LABS: HEMATOCRIT. 28.7 % (36.0-48.0); HEMOGLOBIN. 8.9 g/dL (12.0-16.0); MEAN CORPUSCULAR HGB CONC 31.1 g/dL (31.0-37.0); MEAN CORPUSCULAR VOLUME 86.7 fL (81.0-99.0); MEAN PLATELET VOLUME 10.3 fl (7.4-10.4); PLATELET 186 x1000/uL (130-400); RED BLOOD CELL COUNT 3.31 mill/uL (4.2-5.4); RED CELL DISTRIBUTION WIDTH 18.4 % (11.6-14.6); WHITE BLOOD COUNT 16.8 x1000/uL (4.5-11.0)
[2023-09-28 18:33] LABS: DIFFERENTIAL COMMENT 1
[2023-09-28 18:45] LABS: D-DIMER 3.01 mg/L FEU (<0.50); INR 1.2; PARTIAL THROMBOPLASTIN TIME 31.8 sec (23.4-31.0); PROTHROMBIN TIME 12.5 sec (9.6-11.0)
[2023-09-28 18:50] LABS: ANISOCYTOSIS 1+; PLATELET ESTIMATE NORMAL
[2023-09-28] MEDS: ATORVASTATIN CALCIUM 40MG TABLET PO SCH (21:25)
[2023-09-29] VITALS (39 sets, daily range): BP systolic 129–172; BP diastolic 67–88; PULSE 57–80; RESP 8–26; TEMP 96.5–98.9
[2023-09-29] MEDS: BLOOD SUGAR DIAGNOSTIC STRIP TEST SCH ×5 (00:02→23:57)
[2023-09-29] MEDS: INSULIN LISPRO 100 UNITS/ML SUBCUT SCH ×8 (05:09→18:00)
[2023-09-29 07:13] LABS: HEMATOCRIT. 29.8 % (36.0-48.0); HEMOGLOBIN. 9.1 g/dL (12.0-16.0); MEAN CORPUSCULAR HEMOGLOBIN 26.4 pg (28.0-32.0); MEAN CORPUSCULAR HGB CONC 30.5 g/dL (31.0-37.0); MEAN CORPUSCULAR VOLUME 86.7 fL (81.0-99.0); MEAN PLATELET VOLUME 11.5 fl (7.4-10.4); PLATELET 206 x1000/uL (130-400); RED BLOOD CELL COUNT 3.44 mill/uL (4.2-5.4); RED CELL DISTRIBUTION WIDTH 18.6 % (11.6-14.6); WHITE BLOOD COUNT 15.1 x1000/uL (4.5-11.0)
[2023-09-29 07:14] LABS: DIFFERENTIAL COMMENT 1
[2023-09-29 07:35] LABS: INR 1.2; PROTHROMBIN TIME 12.4 sec (9.6-11.0)
[2023-09-29 08:29] LABS: FERRITIN 354 ng/mL (10-291); FOLIC ACID (FOLATE) SERUM 18.74 ng/mL (>5.38); VITAMIN B12 SERUM 1557 pg/mL (211-911)
[2023-09-29] MEDS: CARVEDILOL 6.25 MG TABLET PO SCH (09:09)
[2023-09-29] MEDS: PANTOPRAZOLE SODIUM 40 MG/VIAL IV SCH (09:09)
[2023-09-29] MEDS: INSULIN GLARGINE 100 UNITS/ML SUBCUT SCH (09:10)
[2023-09-29] MEDS: FUROSEMIDE 40MG TABLET PO SCH ×2 (09:10→21:46)
[2023-09-29 09:44] LABS: CALCIUM 8.3 mg/dL (8.7-10.4); CARBON DIOXIDE 25 mEq/L (21-32); CHLORIDE 106 mEq/L (98-107); CREATININE 3.1 mg/dL (0.6-1.0); GLUCOSE 131 mg/dL (70-105); IRON 24 ug/dL (50-170); POTASSIUM 3.4 mEq/L (3.5-5.1); SODIUM 145 mEq/L (136-145); TOTAL IRON BINDING CAPACITY > 670 ug/dl (250-425); UREA NITROGEN BLOOD 139 mg/dL (9-23)
[2023-09-29] MEDS ORDERED: VANCOMYCIN 500MG PREMIX 100 ML IV NR (11:00)
[2023-09-29] MEDS: IRON SUCROSE COMPLEX 100 MG/5 ML ML IV SCH (11:23)
[2023-09-29] MEDS: CEFEPIME 2,000 MG in DEXT 5% WATER 100 ML IV SCH (14:01)
[2023-09-29] MEDS ORDERED: CEFAZOLIN SODIUM 1000MG/VIAL ONE (15:17)
[2023-09-29] MEDS ORDERED: ROCURONIUM BROMIDE 10MG/ML VIAL 5ML IV ONE ×2 (15:17→15:56)
[2023-09-29] MEDS ORDERED: PHENYLEPHRINE HCL 10 MG/ML 1ML (IV VIAL) IV ONE (15:20)
[2023-09-29] MEDS ORDERED: ONDANSETRON HCL 4MG/2ML INJ ONE (16:01)
[2023-09-29 19:07] LABS: PLATELET ESTIMATE NORMAL
[2023-09-29] MEDS: ATORVASTATIN CALCIUM 40MG TABLET PO SCH (21:46)
[2023-09-30] VITALS (80 sets, daily range): BP systolic 96–146; BP diastolic 59–79; PULSE 59–81; RESP 0–31; TEMP 97.4–98.6
[2023-09-30] MEDS: INSULIN LISPRO 100 UNITS/ML SUBCUT SCH ×10 (05:34→23:25)
[2023-09-30] MEDS: BLOOD SUGAR DIAGNOSTIC STRIP TEST SCH ×4 (05:35→23:06)
[2023-09-30 05:56] LABS: HEMATOCRIT. 36.2 % (36.0-48.0); HEMOGLOBIN. 10.9 g/dL (12.0-16.0); MEAN CORPUSCULAR HEMOGLOBIN 26.4 pg (28.0-32.0); MEAN CORPUSCULAR HGB CONC 30.2 g/dL (31.0-37.0); MEAN CORPUSCULAR VOLUME 87.2 fL (81.0-99.0); MEAN PLATELET VOLUME 11.2 fl (7.4-10.4); PLATELET 246 x1000/uL (130-400); RED BLOOD CELL COUNT 4.15 mill/uL (4.2-5.4); RED CELL DISTRIBUTION WIDTH 18.3 % (11.6-14.6); WHITE BLOOD COUNT 13.3 x1000/uL (4.5-11.0)
[2023-09-30 06:04] LABS: DIFFERENTIAL COMMENT 1
[2023-09-30 06:10] LABS: INR 1.3; PROTHROMBIN TIME 13.3 sec (9.6-11.0)
[2023-09-30 06:14] LABS: CALCIUM 8.3 mg/dL (8.7-10.4); CREATININE 3.1 mg/dL (0.6-1.0); POTASSIUM 4.1 mEq/L (3.5-5.1)
[2023-09-30] MEDS: CARVEDILOL 6.25 MG TABLET PO SCH (09:11)
[2023-09-30] MEDS: FUROSEMIDE 40MG TABLET PO SCH ×2 (09:11→20:06)
[2023-09-30] MEDS: PANTOPRAZOLE SODIUM 40 MG/VIAL IV SCH (09:11)
[2023-09-30] MEDS: INSULIN GLARGINE 100 UNITS/ML SUBCUT SCH (09:12)
[2023-09-30] MEDS: IRON SUCROSE COMPLEX 100 MG/5 ML ML IV SCH (12:28)
[2023-09-30] MEDS: CEFEPIME 2,000 MG in DEXT 5% WATER 100 ML IV SCH (14:43)
[2023-09-30 15:42] LABS: PLATELET ESTIMATE NORMAL
[2023-09-30] MEDS: AMPICILLIN SOD/SULBACTAM NA 3 G in SODIUM CHLORIDE 0.9% 100 ML IV SCH (18:35)
[2023-09-30] MEDS: ATORVASTATIN CALCIUM 40MG TABLET PO SCH (20:05)
[2023-09-30] MEDS: LEVETIRACETAM 500MG/5ML CUP PO SCH (23:23)
[2023-10-01] VITALS (26 sets, daily range): BP systolic 105–136; BP diastolic 56–86; PULSE 67–80; RESP 10–22; TEMP 97.5–98.3
[2023-10-01 05:44] LABS: HEMATOCRIT. 30.6 % (36.0-48.0); HEMOGLOBIN. 9.8 g/dL (12.0-16.0); MEAN CORPUSCULAR HEMOGLOBIN 26.9 pg (28.0-32.0); MEAN CORPUSCULAR VOLUME 84.1 fL (81.0-99.0); MEAN PLATELET VOLUME 11.2 fl (7.4-10.4); PLATELET 259 x1000/uL (130-400); RED BLOOD CELL COUNT 3.64 mill/uL (4.2-5.4); RED CELL DISTRIBUTION WIDTH 18.9 % (11.6-14.6); WHITE BLOOD COUNT 12.4 x1000/uL (4.5-11.0)
[2023-10-01] MEDS: INSULIN LISPRO 100 UNITS/ML SUBCUT SCH ×6 (05:52→18:39)
[2023-10-01] MEDS: BLOOD SUGAR DIAGNOSTIC STRIP TEST SCH ×3 (05:52→18:28)
[2023-10-01] MEDS: AMPICILLIN SOD/SULBACTAM NA 3 G in SODIUM CHLORIDE 0.9% 100 ML IV SCH ×2 (05:55→18:56)
[2023-10-01 06:00] LABS: INR 1.2; PROTHROMBIN TIME 13.2 sec (9.6-11.0)
[2023-10-01 06:04] LABS: CALCIUM 7.9 mg/dL (8.7-10.4); CREATININE 3.5 mg/dL (0.6-1.0); POTASSIUM 3.6 mEq/L (3.5-5.1)
[2023-10-01 07:01] LABS: DIFFERENTIAL COMMENT 1
[2023-10-01] MEDS: DEXT 5%/0.45% NACL 1000ML 1,000 ML IV SCH (08:11)
[2023-10-01] MEDS: CARVEDILOL 6.25 MG TABLET PO SCH (09:00)
[2023-10-01] MEDS: LEVETIRACETAM 500MG/5ML CUP PO SCH ×2 (09:10→21:26)
[2023-10-01] MEDS: PANTOPRAZOLE SODIUM 40 MG/VIAL IV SCH (09:10)
[2023-10-01] MEDS: INSULIN GLARGINE 100 UNITS/ML SUBCUT SCH (09:11)
[2023-10-01] MEDS: IRON SUCROSE COMPLEX 100 MG/5 ML ML IV SCH (11:40)
[2023-10-01] MEDS: ATORVASTATIN CALCIUM 40MG TABLET PO SCH (21:26)
[2023-10-02] VITALS (21 sets, daily range): BP systolic 112–150; BP diastolic 55–78; PULSE 63–73; RESP 10–27; TEMP 96.8–98.5
[2023-10-02] MEDS: BLOOD SUGAR DIAGNOSTIC STRIP TEST SCH ×4 (00:53→17:41)
[2023-10-02] MEDS: DEXT 5%/0.45% NACL 1000ML 1,000 ML IV SCH (04:21)
[2023-10-02 04:39] LABS: HEMATOCRIT. 31.9 % (36.0-48.0); HEMOGLOBIN. 9.8 g/dL (12.0-16.0); MEAN CORPUSCULAR HEMOGLOBIN 26.4 pg (28.0-32.0); MEAN CORPUSCULAR HGB CONC 30.6 g/dL (31.0-37.0); MEAN CORPUSCULAR VOLUME 86.2 fL (81.0-99.0); MEAN PLATELET VOLUME 10.8 fl (7.4-10.4); PLATELET 267 x1000/uL (130-400); RED CELL DISTRIBUTION WIDTH 18.6 % (11.6-14.6); WHITE BLOOD COUNT 10.3 x1000/uL (4.5-11.0)
[2023-10-02 04:48] LABS: INR 1.2; PROTHROMBIN TIME 13.2 sec (9.6-11.0)
[2023-10-02 04:58] LABS: CALCIUM 7.6 mg/dL (8.7-10.4); CREATININE 3.4 mg/dL (0.6-1.0); POTASSIUM 3.2 mEq/L (3.5-5.1)
[2023-10-02 04:59] LABS: DIFFERENTIAL COMMENT 1
[2023-10-02] MEDS: INSULIN LISPRO 100 UNITS/ML SUBCUT SCH ×8 (06:00→17:50)
[2023-10-02 07:09] LABS: ANISOCYTOSIS 2+; PLATELET ESTIMATE NORMAL
[2023-10-02] MEDS: AMPICILLIN SOD/SULBACTAM NA 3 G in SODIUM CHLORIDE 0.9% 100 ML IV SCH ×2 (08:01→17:48)
[2023-10-02 08:52] LABS: BASOPHILS % 0.3 % (0.0-2.0); DIFFERENTIAL COMMENT 0; EOSINOPHILS % 1.6 % (0.0-5.0); HEMATOCRIT. 35.1 % (36.0-48.0); HEMOGLOBIN. 10.6 g/dL (12.0-16.0); LYMPHOCYTES % 7.4 % (20.0-50.0); MEAN CORPUSCULAR HEMOGLOBIN 26.4 pg (28.0-32.0); MEAN CORPUSCULAR HGB CONC 30.3 g/dL (31.0-37.0); MEAN CORPUSCULAR VOLUME 87.3 fL (81.0-99.0); MEAN PLATELET VOLUME 11.4 fl (7.4-10.4); MONOCYTES % 12.4 % (2.0-8.0); NEUTROPHILS % 78.3 % (40.0-76.0); PLATELET 257 x1000/uL (130-400); RED BLOOD CELL COUNT 4.02 mill/uL (4.2-5.4); RED CELL DISTRIBUTION WIDTH 18.8 % (11.6-14.6); WHITE BLOOD COUNT 10.3 x1000/uL (4.5-11.0)
[2023-10-02 08:55] LABS: PLATELET ESTIMATE NORMAL
[2023-10-02] MEDS: CARVEDILOL 6.25 MG TABLET PO SCH (09:00)
[2023-10-02] MEDS: LEVETIRACETAM 500MG/5ML CUP PO SCH ×2 (09:00→21:52)
[2023-10-02] MEDS: INSULIN GLARGINE 100 UNITS/ML SUBCUT SCH (09:12)
[2023-10-02 09:13] LABS: CALCIUM 7.7 mg/dL (8.7-10.4); CREATININE 3.3 mg/dL (0.6-1.0); POTASSIUM 3.2 mEq/L (3.5-5.1)
[2023-10-02] MEDS ORDERED: POTASSIUM CHLORIDE 20MEQ/PACKET PO NR (09:30)
[2023-10-02] MEDS: PANTOPRAZOLE SODIUM 40 MG/VIAL IV SCH (10:14)
[2023-10-02] MEDS: DEXTROSE 5% WATER 1,000 ML IV SCH (10:14)
[2023-10-02] MEDS: IRON SUCROSE COMPLEX 100 MG/5 ML ML IV SCH (10:15)
[2023-10-02] MEDS ORDERED: PROPOFOL 200MG/20ML VIAL IV ONE (10:34)
[2023-10-02] MEDS: ATORVASTATIN CALCIUM 40MG TABLET PO SCH (21:53)
[2023-10-03] VITALS (16 sets, daily range): BP systolic 122–151; BP diastolic 65–79; PULSE 68–79; RESP 8–19; TEMP 96.9–98.3
[2023-10-03] MEDS: INSULIN LISPRO 100 UNITS/ML SUBCUT SCH ×8 (00:30→18:27)
[2023-10-03] MEDS: BLOOD SUGAR DIAGNOSTIC STRIP TEST SCH ×4 (00:34→18:00)
[2023-10-03 05:23] LABS: HEMATOCRIT. 33.2 % (36.0-48.0); HEMOGLOBIN. 10.4 g/dL (12.0-16.0); MEAN CORPUSCULAR HEMOGLOBIN 26.6 pg (28.0-32.0); MEAN CORPUSCULAR HGB CONC 31.4 g/dL (31.0-37.0); MEAN CORPUSCULAR VOLUME 84.8 fL (81.0-99.0); MEAN PLATELET VOLUME 11.3 fl (7.4-10.4); PLATELET 272 x1000/uL (130-400); RED BLOOD CELL COUNT 3.91 mill/uL (4.2-5.4); RED CELL DISTRIBUTION WIDTH 19.2 % (11.6-14.6); WHITE BLOOD COUNT 9.2 x1000/uL (4.5-11.0)
[2023-10-03 05:40] LABS: CREATININE 3.2 mg/dL (0.6-1.0); POTASSIUM 3.4 mEq/L (3.5-5.1)
[2023-10-03] MEDS: DEXTROSE 5% WATER 1,000 ML IV SCH ×2 (05:42→20:00)
[2023-10-03] MEDS: METOCLOPRAMIDE HCL 10MG/2ML VIAL IV SCH ×4 (05:53→23:29)
[2023-10-03] MEDS: AMPICILLIN SOD/SULBACTAM NA 3 G in SODIUM CHLORIDE 0.9% 100 ML IV SCH ×2 (05:53→18:20)
[2023-10-03 06:45] LABS: DIFFERENTIAL COMMENT 1
[2023-10-03] MEDS: LEVETIRACETAM 500MG/5ML CUP PO SCH ×2 (08:38→21:00)
[2023-10-03] MEDS: PANTOPRAZOLE SODIUM 40 MG/VIAL IV SCH (08:39)
[2023-10-03] MEDS: CARVEDILOL 6.25 MG TABLET PO SCH (08:39)
[2023-10-03] MEDS: INSULIN GLARGINE 100 UNITS/ML SUBCUT SCH (08:40)
[2023-10-03] MEDS ORDERED: POTASSIUM CHLORIDE 20MEQ/PACKET PO SCH (09:00)
[2023-10-03] MEDS: IRON SUCROSE COMPLEX 100 MG/5 ML ML IV SCH (13:07)
[2023-10-03 13:44] LABS: ANISOCYTOSIS 1+; PLATELET ESTIMATE NORMAL
[2023-10-03] MEDS: ATORVASTATIN CALCIUM 40MG TABLET PO SCH (21:00)
[2023-10-04] VITALS (20 sets, daily range): BP systolic 122–143; BP diastolic 61–77; PULSE 75–88; RESP 11–33; TEMP 97.1–98
[2023-10-04] MEDS: BLOOD SUGAR DIAGNOSTIC STRIP TEST SCH ×5 (05:04→23:38)
[2023-10-04 06:13] LABS: HEMATOCRIT. 29.7 % (36.0-48.0); HEMOGLOBIN. 9.4 g/dL (12.0-16.0); MEAN CORPUSCULAR HEMOGLOBIN 26.9 pg (28.0-32.0); MEAN CORPUSCULAR HGB CONC 31.7 g/dL (31.0-37.0); MEAN CORPUSCULAR VOLUME 84.9 fL (81.0-99.0); MEAN PLATELET VOLUME 11.1 fl (7.4-10.4); PLATELET 309 x1000/uL (130-400); RED CELL DISTRIBUTION WIDTH 18.9 % (11.6-14.6); WHITE BLOOD COUNT 12.7 x1000/uL (4.5-11.0)
[2023-10-04 06:36] LABS: CALCIUM 7.8 mg/dL (8.7-10.4); CARBON DIOXIDE 23 mEq/L (21-32); CHLORIDE 110 mEq/L (98-107); GLUCOSE 253 mg/dL (70-105); PHOSPHORUS 4.7 mg/dL (2.5-4.9); POTASSIUM 3.5 mEq/L (3.5-5.1); SODIUM 146 mEq/L (136-145)
[2023-10-04] MEDS: METOCLOPRAMIDE HCL 10MG/2ML VIAL IV SCH ×4 (06:43→23:52)
[2023-10-04] MEDS: AMPICILLIN SOD/SULBACTAM NA 3 G in SODIUM CHLORIDE 0.9% 100 ML IV SCH ×2 (06:43→19:16)
[2023-10-04 06:55] LABS: UREA NITROGEN BLOOD 118 mg/dL (9-23)
[2023-10-04 07:03] LABS: DIFFERENTIAL COMMENT 1
[2023-10-04] MEDS ORDERED: POTASSIUM CHLORIDE 20MEQ TABLET SR PO NR (08:45)
[2023-10-04] MEDS: PANTOPRAZOLE SODIUM 40 MG/VIAL IV SCH (09:34)
[2023-10-04] MEDS: CARVEDILOL 6.25 MG TABLET PO SCH (09:34)
[2023-10-04] MEDS: LEVETIRACETAM 500MG/5ML CUP PO SCH ×2 (09:35→21:19)
[2023-10-04] MEDS: INSULIN LISPRO 100 UNITS/ML SUBCUT SCH ×8 (09:40→19:35)
[2023-10-04] MEDS: INSULIN GLARGINE 100 UNITS/ML SUBCUT SCH (09:42)
[2023-10-04] MEDS: DOCUSATE SODIUM SUGAR FREE 100MG/10ML UDC GT SCH (09:44)
[2023-10-04 17:12] LABS: PLATELET ESTIMATE NORMAL
[2023-10-04] MEDS: ATORVASTATIN CALCIUM 40MG TABLET PO SCH (21:18)
[2023-10-05] VITALS (8 sets, daily range): BP systolic 117–119; BP diastolic 63–64; PULSE 72–84; RESP 10–19; TEMP 97.6
[2023-10-05] MEDS: INSULIN LISPRO 100 UNITS/ML SUBCUT SCH ×8 (00:07→19:02)
[2023-10-05] MEDS: BLOOD SUGAR DIAGNOSTIC STRIP TEST SCH ×3 (06:00→18:49)
[2023-10-05] MEDS: AMPICILLIN SOD/SULBACTAM NA 3 G in SODIUM CHLORIDE 0.9% 100 ML IV SCH ×2 (06:19→18:49)
[2023-10-05 06:31] LABS: BASOPHILS % 0.4 % (0.0-2.0); EOSINOPHILS % 1.3 % (0.0-5.0); HEMATOCRIT. 26.5 % (36.0-48.0); HEMOGLOBIN. 8.4 g/dL (12.0-16.0); LYMPHOCYTES % 7.7 % (20.0-50.0); MEAN CORPUSCULAR HGB CONC 31.7 g/dL (31.0-37.0); MEAN CORPUSCULAR VOLUME 85.3 fL (81.0-99.0); MONOCYTES % 8.5 % (2.0-8.0); NEUTROPHILS % 82.1 % (40.0-76.0); PLATELET 329 x1000/uL (130-400); RED CELL DISTRIBUTION WIDTH 18.7 % (11.6-14.6); WHITE BLOOD COUNT 14.7 x1000/uL (4.5-11.0)
[2023-10-05 08:37] LABS: CALCIUM 7.6 mg/dL (8.7-10.4); CREATININE 2.8 mg/dL (0.6-1.0); POTASSIUM 3.7 mEq/L (3.5-5.1)
[2023-10-05] MEDS: DOCUSATE SODIUM SUGAR FREE 100MG/10ML UDC GT SCH (09:00)
[2023-10-05] MEDS: PANTOPRAZOLE SODIUM 40 MG/VIAL IV SCH (09:43)
[2023-10-05] MEDS: LEVETIRACETAM 500MG/5ML CUP PO SCH ×2 (09:43→21:12)
[2023-10-05] MEDS: INSULIN GLARGINE 100 UNITS/ML SUBCUT SCH (09:45)
[2023-10-05] MEDS: CARVEDILOL 6.25 MG TABLET PO SCH (09:46)
[2023-10-05] MEDS ORDERED: DOCUSATE SODIUM SUGAR FREE 100MG/10ML UDC GT PRN (12:30)
[2023-10-05] MEDS: ATORVASTATIN CALCIUM 40MG TABLET PO SCH (21:12)
[2023-10-06] VITALS (17 sets, daily range): BP systolic 118–136; BP diastolic 60–80; PULSE 60–79; RESP 11–18; TEMP 97.2–97.5
[2023-10-06] MEDS: AMPICILLIN SOD/SULBACTAM NA 3 G in SODIUM CHLORIDE 0.9% 100 ML IV SCH ×2 (05:13→18:04)
[2023-10-06 06:23] LABS: BASOPHILS % 0.5 % (0.0-2.0); HEMATOCRIT. 26.6 % (36.0-48.0); HEMOGLOBIN. 8.2 g/dL (12.0-16.0); LYMPHOCYTES % 7.1 % (20.0-50.0); MEAN CORPUSCULAR HEMOGLOBIN 26.9 pg (28.0-32.0); MEAN CORPUSCULAR HGB CONC 30.9 g/dL (31.0-37.0); MEAN CORPUSCULAR VOLUME 87.1 fL (81.0-99.0); MEAN PLATELET VOLUME 11.2 fl (7.4-10.4); MONOCYTES % 6.2 % (2.0-8.0); NEUTROPHILS % 84.2 % (40.0-76.0); PLATELET 359 x1000/uL (130-400); RED BLOOD CELL COUNT 3.05 mill/uL (4.2-5.4); RED CELL DISTRIBUTION WIDTH 18.8 % (11.6-14.6); WHITE BLOOD COUNT 13.6 x1000/uL (4.5-11.0)
[2023-10-06 06:30] LABS: CALCIUM 7.8 mg/dL (8.7-10.4); CREATININE 2.8 mg/dL (0.6-1.0); POTASSIUM 3.8 mEq/L (3.5-5.1)
[2023-10-06] MEDS: PANTOPRAZOLE SODIUM 40 MG/VIAL IV SCH (09:49)
[2023-10-06] MEDS: CARVEDILOL 6.25 MG TABLET PO SCH (09:49)
[2023-10-06] MEDS: LEVETIRACETAM 500MG/5ML CUP PO SCH ×2 (09:49→21:57)
[2023-10-06] MEDS: INSULIN GLARGINE 100 UNITS/ML SUBCUT SCH (09:50)
[2023-10-06] MEDS: BLOOD SUGAR DIAGNOSTIC STRIP TEST SCH ×2 (12:12→17:50)
[2023-10-06] MEDS: INSULIN LISPRO 100 UNITS/ML SUBCUT SCH ×4 (12:25→18:05)
[2023-10-06] MEDS: ATORVASTATIN CALCIUM 40MG TABLET PO SCH (21:57)
[2023-10-07] VITALS (27 sets, daily range): BP systolic 120–152; BP diastolic 62–78; PULSE 69–80; RESP 10–31; TEMP 97.3–98.4
[2023-10-07] MEDS: BLOOD SUGAR DIAGNOSTIC STRIP TEST SCH ×3 (05:06→14:46)
[2023-10-07] MEDS: AMPICILLIN SOD/SULBACTAM NA 3 G in SODIUM CHLORIDE 0.9% 100 ML IV SCH ×2 (05:07→17:33)
[2023-10-07] MEDS: INSULIN LISPRO 100 UNITS/ML SUBCUT SCH ×8 (06:00→17:37)
[2023-10-07 06:49] LABS: BASOPHILS % 0.6 % (0.0-2.0); EOSINOPHILS % 2.4 % (0.0-5.0); HEMATOCRIT. 25.8 % (36.0-48.0); HEMOGLOBIN. 8.2 g/dL (12.0-16.0); LYMPHOCYTES % 8.7 % (20.0-50.0); MEAN CORPUSCULAR HEMOGLOBIN 27.2 pg (28.0-32.0); MEAN CORPUSCULAR HGB CONC 31.8 g/dL (31.0-37.0); MEAN CORPUSCULAR VOLUME 85.7 fL (81.0-99.0); MEAN PLATELET VOLUME 10.7 fl (7.4-10.4); MONOCYTES % 6.7 % (2.0-8.0); NEUTROPHILS % 81.6 % (40.0-76.0); PLATELET 376 x1000/uL (130-400); RED BLOOD CELL COUNT 3.01 mill/uL (4.2-5.4)
[2023-10-07 07:26] LABS: CALCIUM 7.6 mg/dL (8.7-10.4); CREATININE 2.8 mg/dL (0.6-1.0); POTASSIUM 3.7 mEq/L (3.5-5.1)
[2023-10-07] MEDS: PANTOPRAZOLE SODIUM 40 MG/VIAL IV SCH (09:22)
[2023-10-07] MEDS: LEVETIRACETAM 500MG/5ML CUP PO SCH ×2 (09:22→21:00)
[2023-10-07] MEDS: CARVEDILOL 6.25 MG TABLET PO SCH (09:23)
[2023-10-07] MEDS: DEXTROSE 5% WATER 1,000 ML IV SCH ×2 (09:36→09:48)
[2023-10-07] MEDS: INSULIN GLARGINE 100 UNITS/ML SUBCUT SCH (09:49)
[2023-10-07] MEDS: ATORVASTATIN CALCIUM 40MG TABLET PO SCH (21:00)
[2023-10-08] VITALS (21 sets, daily range): BP systolic 94–150; BP diastolic 58–78; PULSE 65–94; RESP 10–20; TEMP 97.3–98.2
[2023-10-08] MEDS: DEXTROSE 5% WATER 1,000 ML IV SCH ×2 (02:40→22:00)
[2023-10-08] MEDS: INSULIN LISPRO 100 UNITS/ML SUBCUT SCH ×10 (06:00→23:33)
[2023-10-08] MEDS: BLOOD SUGAR DIAGNOSTIC STRIP TEST SCH ×5 (06:00→23:33)
[2023-10-08] MEDS: AMPICILLIN SOD/SULBACTAM NA 3 G in SODIUM CHLORIDE 0.9% 100 ML IV SCH ×2 (06:35→17:57)
[2023-10-08] MEDS: LEVETIRACETAM 500MG/5ML CUP PO SCH ×2 (09:19→20:20)
[2023-10-08] MEDS: PANTOPRAZOLE SODIUM 40 MG/VIAL IV SCH (09:19)
[2023-10-08] MEDS: CARVEDILOL 6.25 MG TABLET PO SCH (09:19)
[2023-10-08] MEDS: INSULIN GLARGINE 100 UNITS/ML SUBCUT SCH (09:21)
[2023-10-08] MEDS: ATORVASTATIN CALCIUM 40MG TABLET PO SCH (20:20)
[2023-10-09] VITALS (21 sets, daily range): BP systolic 117–147; BP diastolic 63–80; PULSE 62–72; RESP 8–20; TEMP 97.5–97.8
[2023-10-09] MEDS: AMPICILLIN SOD/SULBACTAM NA 3 G in SODIUM CHLORIDE 0.9% 100 ML IV SCH ×2 (05:29→18:12)
[2023-10-09] MEDS: BLOOD SUGAR DIAGNOSTIC STRIP TEST SCH ×3 (05:36→18:21)
[2023-10-09] MEDS: INSULIN LISPRO 100 UNITS/ML SUBCUT SCH ×6 (05:42→18:17)
[2023-10-09 08:08] LABS: HEMATOCRIT. 26.2 % (36.0-48.0); HEMOGLOBIN. 7.9 g/dL (12.0-16.0); MEAN CORPUSCULAR HEMOGLOBIN 26.7 pg (28.0-32.0); MEAN CORPUSCULAR VOLUME 89.1 fL (81.0-99.0); MEAN PLATELET VOLUME 10.8 fl (7.4-10.4); PLATELET 330 x1000/uL (130-400); RED BLOOD CELL COUNT 2.94 mill/uL (4.2-5.4); RED CELL DISTRIBUTION WIDTH 19.6 % (11.6-14.6); WHITE BLOOD COUNT 13.5 x1000/uL (4.5-11.0)
[2023-10-09 08:10] LABS: CALCIUM 7.3 mg/dL (8.7-10.4); CREATININE 2.2 mg/dL (0.6-1.0); POTASSIUM 3.7 mEq/L (3.5-5.1)
[2023-10-09 08:11] LABS: DIFFERENTIAL COMMENT 1
[2023-10-09] MEDS: LEVETIRACETAM 500MG/5ML CUP PO SCH ×2 (08:25→21:14)
[2023-10-09] MEDS: PANTOPRAZOLE SODIUM 40 MG/VIAL IV SCH (08:25)
[2023-10-09] MEDS: CARVEDILOL 6.25 MG TABLET PO SCH (08:25)
[2023-10-09] MEDS: INSULIN GLARGINE 100 UNITS/ML SUBCUT SCH (09:56)
[2023-10-09] MEDS: DEXTROSE 5% WATER 1,000 ML IV SCH (12:00)
[2023-10-09 16:01] LABS: PLATELET ESTIMATE NORMAL
[2023-10-09 16:02] LABS: ANISOCYTOSIS 1+
[2023-10-09] MEDS: ATORVASTATIN CALCIUM 40MG TABLET PO SCH (21:14)
[2023-10-10] VITALS (17 sets, daily range): BP systolic 115–143; BP diastolic 61–79; PULSE 60–68; RESP 9–20; TEMP 97.7–98.3
[2023-10-10] MEDS: BLOOD SUGAR DIAGNOSTIC STRIP TEST SCH ×4 (00:44→17:45)
[2023-10-10] MEDS: INSULIN LISPRO 100 UNITS/ML SUBCUT SCH ×8 (00:51→18:00)
[2023-10-10] MEDS: AMPICILLIN SOD/SULBACTAM NA 3 G in SODIUM CHLORIDE 0.9% 100 ML IV SCH ×2 (05:03→18:00)
[2023-10-10] MEDS: PANTOPRAZOLE SODIUM 40 MG/VIAL IV SCH (10:59)
[2023-10-10] MEDS: LEVETIRACETAM 500MG/5ML CUP PO SCH (11:00)
[2023-10-10] MEDS: CARVEDILOL 6.25 MG TABLET PO SCH (11:00)
[2023-10-10] MEDS: INSULIN GLARGINE 100 UNITS/ML SUBCUT SCH (11:02)
== END 2023-10-11 01:03 | disposition short-term general hospital (02) | DRG 4 ==
LOC: EDBD 11:48 → ER 11:48 → EDBEDREQ 12:27 → CVICU 13:03 → EDBEDREQTM 13:38 → EDBEDREQ 13:38 → 5EST 10-01 15:07
PROVIDERS: ADMIT Internal Medicine; ATTEND Internal Medicine
PROC: 5A1955Z Respiratory Ventilation, Greater than 96 Consecutive Hours (ICD-10-PCS; 2023-09-14)
PROC: 0BH17EZ Insertion of Endotracheal Airway into Trachea, Via Natural or Artificial Opening (ICD-10-PCS; 2023-09-14)
PROC: 5A12012 Performance of Cardiac Output, Single, Manual (ICD-10-PCS; 2023-09-14)
PROC: 4A00X4Z Measurement of Central Nervous Electrical Activity, External Approach (ICD-10-PCS; 2023-09-16)
PROC: 4A00X4Z Measurement of Central Nervous Electrical Activity, External Approach (ICD-10-PCS; 2023-09-24)
PROC: 0B110F4 Bypass Trachea to Cutaneous with Tracheostomy Device, Open Approach (ICD-10-PCS; principal; 2023-09-30)
PROC: 0DB68ZX Excision of Stomach, Via Natural or Artificial Opening Endoscopic, Diagnostic (ICD-10-PCS; 2023-10-02)
PROC: 0DH63UZ Insertion of Feeding Device into Stomach, Percutaneous Approach (ICD-10-PCS; 2023-10-02)
DX: J96.01 Acute respiratory failure with hypoxia (principal); A41.9 Sepsis, unspecified organism; N17.0 Acute kidney failure with tubular necrosis; I21.4 Non-ST elevation (NSTEMI) myocardial infarction; I46.9 Cardiac arrest, cause unspecified; R57.0 Cardiogenic shock; J15.69 Pneumonia due to other Gram-negative bacteria; J15.0 Pneumonia due to Klebsiella pneumoniae; I50.23 Acute on chronic systolic (congestive) heart failure; G93.1 Anoxic brain damage, not elsewhere classified; I13.0 Hypertensive heart and chronic kidney disease with heart failure and stage 1 through stage 4 chronic kidney disease, or unspecified chronic kidney disease; N18.4 Chronic kidney disease, stage 4 (severe); N39.0 Urinary tract infection, site not specified; E87.20 Acidosis, unspecified; Z99.11 Dependence on respirator [ventilator] status; Z20.822 Contact with and (suspected) exposure to COVID-19; E87.5 Hyperkalemia; E11.65 Type 2 diabetes mellitus with hyperglycemia; E87.6 Hypokalemia; D64.9 Anemia, unspecified; E11.22 Type 2 diabetes mellitus with diabetic chronic kidney disease; I25.10 Atherosclerotic heart disease of native coronary artery without angina pectoris; L89.156 Pressure-induced deep tissue damage of sacral region; R13.12 Dysphagia, oropharyngeal phase; K29.70 Gastritis, unspecified, without bleeding; Z79.899 Other long term (current) drug therapy; Z79.4 Long term (current) use of insulin; Z79.82 Long term (current) use of aspirin; I25.2 Old myocardial infarction; W18.39XA Other fall on same level, initial encounter; Y93.89 Activity, other specified; Y92.89 Other specified places as the place of occurrence of the external cause; Y99.8 Other external cause status
CPT/HCPCS: 31500; 36415; 36600; 70551; 71045; 74018; 74176; 78580; 80048; 80053; 80202; 80305; 81003; 82040; 82375; 82550; 82570; 82607; 82728; 82746; 82805; 82962; 83036; 83540; 83550; 83605; 83735; 83880; 84100; 84134; 84145; 84155; 84156; 84165; 84478; 84484; 85025; 85027; 85044; 85362; 85379; 85384; 86160; 86256; 86705; 86850; 86900; 87015; 87045; 87070; 87076; 87077; 87186; 87340; 87426; 87427; 87449; 88305; 88312; 88313; 89055; 92950; 93005; 93306; 93970; 94002; 94003; 94640; 95816; 99291; A6261; C1893; C9113; J0295; J0690; J0692; J1650; J1815; J1940; J2370; J2405; J2704; J2765; J3370; J3480; J3490; J7050; J7060; J7070